=== PATIENT | female | born 1970 | race Caucasian/White ===

== ENCOUNTER → 2017-12-11 08:02 | Outpatient (CLI) | payer OTHER | END | disposition home or self-care (01) | LOC: LAB 08:02 | DX: E55.9 Vitamin D deficiency, unspecified (principal); D64.89 Other specified anemias; I11.9 Hypertensive heart disease without heart failure ==

== ENCOUNTER 2019-03-13 18:35 | Outpatient (CLI) | payer OTHER ==
[2019-03-18] MEDS ORDERED: COZAAR50 MG PO (17:00)
[2019-03-18] MEDS ORDERED: FOLGARD TABLET1 EACH PO (17:00)
[2019-03-18] MEDS ORDERED: [UNRECOGNIZED DRUG - OTHER] PO (17:01)
== END 2019-03-13 19:43 | disposition home or self-care (01) ==
LOC: RAD 18:35
DX: M54.5 Low back pain (principal)

== ENCOUNTER 2020-09-16 14:19 | Outpatient (CLI) | payer OTHER ==
[~2020-09-16 14:19] MED LIST: COZAAR50 MG PO; FOLGARD TABLET1 EACH PO; MELATONIN10 M2 PO; [UNRECOGNIZED DRUG - OTHER] PO
== END 2020-09-16 14:32 | disposition home or self-care (01) ==
LOC: RAD 14:19
PROVIDERS: ATTEND Internal Medicine Geriatric Medicine
DX: R06.02 Shortness of breath (principal); I11.9 Hypertensive heart disease without heart failure; R55 Syncope and collapse
CPT/HCPCS: 70551

== ENCOUNTER 2020-10-13 09:07 | Outpatient (CLI) | payer OTHER | END 2020-10-13 09:29 | disposition home or self-care (01) | LOC: SONOGRAMA 09:07 | PROVIDERS: ATTEND Obstetrics & Gynecology Gynecologic Oncology | DX: N85.8 Other specified noninflammatory disorders of uterus (principal); N97.0 Female infertility associated with anovulation ==

== ENCOUNTER 2020-10-13 10:26 | Outpatient (CLI) | payer OTHER | END 2020-10-13 10:31 | disposition home or self-care (01) | LOC: NUCLEAR 10:26 | PROVIDERS: ATTEND Internal Medicine Geriatric Medicine | DX: M16.0 Bilateral primary osteoarthritis of hip (principal); M19.90 Unspecified osteoarthritis, unspecified site | CPT/HCPCS: 78315; A9503 ==

== ENCOUNTER 2020-10-22 11:30 | Inpatient (IN) | payer OTHER ==
[~2020-10-22] VITALS: Ht 165.1 cm; Wt 62.1 kg
[2020-10-22] MEDS ORDERED: IRON236 MG PO (15:47)
[2020-10-29] MEDS ORDERED: AMLODIPINE BESYL5 MG (08:05)
[2020-10-29] MEDS ORDERED: PYRIDOXINE HCL100 MG (08:05)
[2020-10-29] MEDS ORDERED: INTEGRA F CAPS1 EAC1 (08:05)
[2020-10-29] MEDS ORDERED: ABANEU-SL TABL1 EACH (08:06)
== END 2020-10-31 12:07 | DRG 743 ==
LOC: OB/GYN 10-29 06:35 → O/R 10-29 06:35 → SURH 10-29 11:30 → OB/GYN 10-29 12:20 → SURH 10-29 13:45 → OB/GYN 10-31 12:07
PROVIDERS: ADMIT Obstetrics & Gynecology Gynecologic Oncology; ATTEND Obstetrics & Gynecology Gynecologic Oncology
PROC: 0UT70ZZ Resection of Bilateral Fallopian Tubes, Open Approach (ICD-10-PCS; 2020-10-29)
PROC: 0DNW0ZZ Release Peritoneum, Open Approach (ICD-10-PCS; 2020-10-29)
PROC: 0UT90ZZ Resection of Uterus, Open Approach (ICD-10-PCS; principal; 2020-10-29 13:45)
DX: D25.1 Intramural leiomyoma of uterus (principal); K66.0 Peritoneal adhesions (postprocedural) (postinfection); I11.9 Hypertensive heart disease without heart failure; N93.8 Other specified abnormal uterine and vaginal bleeding